=== PATIENT | male | born 1980 | race Caucasian/White ===

== ENCOUNTER 2021-09-29 16:29 | Emergency (ER) | payer BC ==
[~2021-09-29] VITALS: Ht 190.5 cm; Wt 99.8 kg
[~2021-09-29 16:29] MED LIST: ACETAMINOPHEN; CLIN300 PO; DIPHENHYDRAMINE; HYDACE5 PO; PENVK500 PO; RXCLIN PO
== END 2021-09-29 17:22 | disposition home or self-care (01) ==
LOC: ER 16:29
DX: U07.1 COVID-19 (principal); F17.210 Nicotine dependence, cigarettes, uncomplicated; Z79.899 Other long term (current) drug therapy
CPT/HCPCS: 99282